=== PATIENT | female | born 1985 | race Caucasian/White ===

== ENCOUNTER → 2017-03-23 | Day surgery (SDC) | payer OTHER ==
[2017-03-23] VITALS (8 sets, daily range): BP systolic 113–142; BP diastolic 67–93; PULSE 72–95; RESP 5–18; O2SAT 97–99
[~2017-03-23] VITALS: Ht 157.5 cm; Wt 53.5 kg
[~2017-03-23] MED LIST: CITA40TA13 PO; Dexamethasone 4 mg/mL Inj IVPUSH PRN; Dexamethasone 4 mg/mL Inj ONE; EPHEDrine Sulfate 50 mg/mL Inj IVPUSH PRN; HYDROmorphone 1 mg/mL Inj IVPUSH PRN; LISD40CA PO; Lactated Ringer's 1,000 ML IV SCH; Lactated Ringer's 500 ML IV PRN; MULT-1018 PO; MetoCLOpramide 5 mg/mL 2 mL Inj IVPUSH PRN; MetoCLOpramide 5 mg/mL 2 mL Inj ONE; Ondansetron 2 mg/mL 2 mL Inj IVPUSH PRN; Ondansetron 2 mg/mL 2 mL Inj ONE; Phenylephrine 10,000 mCg/mL Inj IVPUSH PRN; Propofol 10,000 mCg/mL 20 mL Inj ONE; TRAM-14 PO; diphenhydrAMINE 25 mg Capsule PO PRN; oxyCODONE-Acetamin 5-325 mg Tablet PO PRN
[2017-03-23] MEDS: Lactated Ringer's 1,000 ML IV SCH ×2 (09:22→11:01)
--- NOTE | 2017-03-23 10:43 | PCM.HPANE ---
Patient Data Surgeon Admitting Provider: Attending Provider:Hakan Bustamante MD Primary Care Physician:Mady Other Provider:Amanda Dobbs Anesthesia Reason for Visit Abnormal Uterine And Vaginal Bleeding Ht/WT & BMI Height (Feet): 5 Height (Inches): 2 Weight (Kilograms): 53.5 Body Mass Index 21.00 Allergies Coded Allergies: No Known Allergies (Verified , 06/02/04) Past Anesthesia History Anesthesia History: Denies:: Abnormal Airway, Anesthesia Reactions, Difficult Intubation, Fam Anesthesia Reaction, Fam Malignant Hypertherm, Malignant Hyperthermia Diabetes History Hx Diabetes?: No MRSA MRSA: No Medications Hypertension Medication: No Home Meds Incl Beta Drew: No Reported Medications Multivitamin (Multi Vitamin Daily)1 Each Tablet1 Each PO DAILY 30 Days Ref 0 03/16/17 Lisdexamfetamine Dimesylate (Vyvanse)40 Mg [id number] Mg PO DAILY 30 Days Ref 0 03/16/17 Tramadol (Ultram)50 Mg [id number] Mg PO Q4H PRN Pain Ref 0 03/16/17 Citalopram 40 Mg [id number] Mg PO DAILY 30 Days Ref 0 03/16/17 Discontinued Scripts Promethazine 25 Mg [id number] Mg PO Q6H PRN For Nausea/Vomiting #10 TABLET Ref 0 Prov:Genaro Chandra DO 07/24/16 History History of ENT Problems?: No HEENT History: Denies:: Abnormal Airway Difficult Intubation Dysphagia Glaucoma Hearing Problem Sinus Problem TMJ Denture Type: None Teeth Condition: Within Normal Limits Hx of Heart Problems?: No Cardiovascular History: Denies:: AICD Abdominal Aortic Aneurism Atrial Fibrillation Cardiac Surgery Chest Pain Congestive Heart Failure Coronary Artery Disease Edema Heart Murmur Hypertension Irregular Heartbeat Pacemaker Peripheral Vascular Rheumatic Fever Thrombophlebitis Valvular Heart Disease Hx of Respiratory Problem?: Yes Respiratory History: Positive for:: Asthma (Exercise induced,) Denies:: COPD Chest Surgery Cough Emphysema Hemoptysis Pneumonia Tuberculosis Use of C-PAP Machine Hx Neurologic Problems?: Yes Neurological History: Positive for:: Headaches (occures durring menses associated heavy bleeding) Denies:: Alzheimer's Disease CVA Dementia Dizziness Multiple Sclerosis Parkinson's Disease Seizures TIA Hx of GI Problems?: No Hx of Problems?: No Female Hx: Denies:: Currently Endometriosis Pelvic Inflammatory Problems with Breasts? Skin History: Denies:: History Skin Disorders? Pressure Ulcers Hx Musculoskeletal Problems?: No Musculoskeletal History: Positive for:: Fibromyalgia Denies:: Back Injury Degenerative Joint Joint Replacement Myasthenia Gravis Osteoarthritis Rheumatoid Arthritis Systemic Lupus Psycho Social History: Positive for:: Anxiety Hx Depression Denies:: Bipolar Disorder Suicide Attempt Hx Surgeries?: Yes Other History: Positive for:: Hospitalization (06/2016) Denies:: Cancer Endocrine Disease Thyroid Disease History Blood Transfusions: Positive for:: Accept Blood Products? Denies:: Blood Transfusions Hx Diabetes: No Hx Alcohol Use: Yes (Minimal 1-2 beers a week)Hx Substance Use: No Stop/Bang Treated for Sleep Apnea?: No Do You Have a CPAP Machine?: No S-Snoring: Do You Snore Loudly: No T-Tired: feel tired, fatigued: No O-Obsered: Observed not breath: No P-Blood Pressure: treated: No B- Body Mass Index > 35 kg/m2: No A- Age over 50: No N- Neck Large Circumference: No G- Gender Male: No PENG Total Score: 0 PENG Risk Assessment: Low Risk, <3 Yes Risk Assessment Category Category 1A: Patient has history of documented sleep apnea, and HAS NOT received any narcotic, sedative or anesthesia administration during this stay. Category 1B: Patient has history of documented sleep apnea, and HAS received any narcotic , sedative or anesthesia administration during this stay Category 2: Patient has SUSPECTED Obstructive Sleep Apnea, and HAS received any narcotic , sedative or anesthesia administration during this stay. Category 3: Patient has SUSPECTED Obstructive Sleep Apnea and HAS NOT received narcotic, sedative or anesthesia administration during this stay. Category 4: Outpatient in Procedural Areas with known sleep apnea or who screen positive for High Risk via the STOP/BANG questionnaire. Exam Exam Vital Signs Vital Signs Date Time Temp Pulse Resp B/P Pulse Ox O2 Delivery O2 Flow Rate FiO2 03/23/17 09:39 36.4 72 16 117/72 97 Room Air General Appearance: Oriented X3 HEENT/AIRWAY: MP 1 Lungs: Normal Air Movement Heart: Regular Rate/Rhythm Meds/Labs/Diagnostics Admission Meds Current Medications Lactated Ringer's (Lr) 1,000 ml @ 120 mls/hr Q8H20M IV Last administered on t 09:22; Start 03/23/17 at 05:00; Stop 03/23/17 at 13:19 Plan Impression Patient chart reviewed, patient interviewed and anesthestic plan with risks, benefits, and alternatives discussed, and informed consent obtained. ASA Physical Status: ASA2 Mod Systemic Disease Anesthetic Plan: GA Bene/Risks/Altern/Consents: Yes HP Complete Prior to Induction: Yes Gamaliel Hair MD Mar 23, 2017 10:43
--- NOTE | 2017-03-23 11:56 | PCM.DIMED ---
Discharge Instructions Date of Service Mar 23, 2017 Dates of Hospitalization Diet Discharge Diet: No restrictions Activity Discharge Activity: No restrictions Call your provider Call your provider for: Fever or Chills, Shortness of breath, Bleeding, Chest pain, Vomitting, Excessive diarrhea, Weakness (unilateral) Patient Instructions Follow-up with PCP in: 2 weeks Hakan Bustamante MD Mar 23, 2017 11:56
[2017-03-23] MEDS: fentaNYL-PF 50 mCg/mL 2 mL Inj IVPUSH PRN ×2 (12:15→12:30)
--- NOTE | 2017-03-23 12:53 | PCM.ANEP1 ---
Post Anesthesia PACU Phase 1 Assessment Vital Signs Vital Signs Date Time Temp Pulse Resp B/P Pulse Ox O2 Delivery O2 Flow Rate FiO2 03/23/17 12:25 78 5 140/67 99 Room Air 03/23/17 12:10 79 18 142/93 99 Room Air 03/23/17 12:05 74 16 134/87 98 Simple Mask 10 03/23/17 12:00 76 17 133/83 98 Simple Mask 10 03/23/17 11:55 36.5 75 15 124/77 98 Simple Mask 10 03/23/17 09:39 36.4 72 16 117/72 97 Room Air Anesthetic Administered: GA Level of Alertness: Awake, talking Pain: No Nausea or Vomiting: No CV Function & Hydration Stable: Yes Airway Device: Lungs: Normal Air Movement PACU Phase 2 Assessment Patient Instructions Provided: N/A Gamaliel Hair MD Mar 23, 2017 12:53
--- NOTE | 2017-03-23 13:50 | OP ---
[address] [address] OPERATIVE REPORT PATIENT: ELLY TORRES : 1985 MR#: [id number] ADMIT: 03/23/2017 JOB ID: [id number] DATE OF SURGERY: 03/23/2017 SURGEON: Hakan Bustamante M.D. PROCEDURE: Hysteroscopy with MyoSure endometrial ablation. PREOPERATIVE DIAGNOSIS(ES): Abnormal uterine bleeding. POSTOPERATIVE DIAGNOSIS(ES): Abnormal uterine bleeding. ANESTHESIA: Gamaliel Hair M.D., general. ESTIMATED BLOOD LOSS: 2 mL. ESTIMATED URINE OUTPUT: 160 mL. ESTIMATED FLUID: 500 mL of lactated Ringer's. COMPLICATIONS: None. FINDINGS: Relatively small uterus. The cavity measured 4 cm for the length and 2.5 cm for the width. During hysteroscopy, no abnormal pathological findings inside of the uterus were found. Normal appearance of the cervix, vagina and perineum. DESCRIPTION OF PROCEDURE: The patient was brought to the operating room where she underwent general anesthesia without difficulty. The patient was prepped and draped in the usual surgical fashion. She was placed in the dorsal lithotomy position using stirrups. Time out was performed identifying correct patient and correct procedure. Two Conway retractors were placed into the vagina. The cervix was identified and grasped with a tenaculum. It was dilated using Hegar dilators to 7 mm. Using MyoSure hysteroscope, the cavity was reviewed with fluoroscopy with the findings mentioned above. MyoSure endometrial ablation was then done. The MyoSure instrument was introduced with assessment of the cavity, 4 cm for the length and 2.5 cm for the width. The assessment was successful, went complete, and ablation cycle was started. It lasted for 1 minute and 15 seconds and was completed. Post procedure hysteroscopy was done and confirmed complete ablation of the endometrium. Images were obtained. All the instruments were removed. The patient was repositioned back into the supine position. She tolerated the procedure well and was transferred to the recovery room in stable condition.
== END | disposition home or self-care (01) ==
LOC: SAS 08:54
PROVIDERS: ATTEND Legal Medicine
DX: N93.8 Other specified abnormal uterine and vaginal bleeding (principal); J45.909 Unspecified asthma, uncomplicated; F32.9 Major depressive disorder, single episode, unspecified; F90.9 Attention-deficit hyperactivity disorder, unspecified type; F41.9 Anxiety disorder, unspecified; G89.4 Chronic pain syndrome
CPT/HCPCS: 58563; J1100; J1885; J2250; J2405; J2765; J3010; J7120